=== PATIENT | male | born 1945 | race Caucasian/White ===

== ENCOUNTER 2020-06-08 08:42 | Day surgery (SDC) | payer MEDICARE, OTHER ==
[~2020-06-08] VITALS: Ht 175.3 cm; Wt 67.3 kg
[2020-06-08] VITALS (10 sets, daily range): BP systolic 92–119; BP diastolic 49–99
[2020-06-08] MEDS ORDERED: diphenhydrAMINE 25mg capsule PO PRN (09:05)
[2020-06-08] MEDS ORDERED: normal saline 1,000 ML IV SCH ×2 (09:05→12:00)
[2020-06-08] MEDS ORDERED: INSU100V9 SQ (09:19)
[2020-06-08] MEDS ORDERED: DILT30TA5 (09:19)
[2020-06-08] MEDS ORDERED: METF-436 PO (09:19)
[2020-06-08] MEDS ORDERED: DABI150C PO (09:19)
[2020-06-08] MEDS ORDERED: LYR75C PO (09:19)
[2020-06-08] MEDS ORDERED: DOCU-148 PO (09:19)
[2020-06-08] MEDS ORDERED: HYDR-4353 PO (09:19)
[2020-06-08] MEDS ORDERED: CARV3.12 PO (09:19)
[2020-06-08] MEDS ORDERED: ALBU8.5H8 INH (09:19)
[2020-06-08] MEDS ORDERED: FAMO-128 PO (09:19)
[2020-06-08 09:27] LABS: BASOPHILS # (AUTO) 0.1 X10'3 (0-0.2); BASOPHILS % (AUTO) 0.8 % (0-1); EOSINOPHILS # (AUTO) 0.2 X10'3 (0-0.9); EOSINOPHILS % (AUTO) 1.7 % (0-6); HEMATOCRIT 42.6 % (42.0-52.0); HEMOGLOBIN 14.2 g/dl (14.0-17.9); LYMPHOCYTES # (AUTO) 2.1 X10'3 (1.1-4.8); LYMPHOCYTES % (AUTO) 19.3 % (21-51); MEAN CORPUSCULAR HEMOGLOBIN 29.2 PG (27.0-31.0); MEAN CORPUSCULAR HGB CONC 33.4 g/dL (33.0-36.5); MEAN CORPUSCULAR VOLUME 87.4 FL (78-98); MEAN PLATELET VOLUME 9.5 FL (7.4-10.4); MONOCYTES # (AUTO) 1.4 X10'3 (0-0.9); MONOCYTES % (AUTO) 12.9 % (2-12); NEUTROPHILS # (AUTO) 7.1 X10'3 (1.8-7.7); NEUTROPHILS % (AUTO) 65.3 % (42-75); PLATELET COUNT 259 X10'3 (140-440); RED BLOOD COUNT 4.87 X10'6 (4.70-6.10); RED CELL DISTRIBUTION WIDTH 17.5 % (11.5-14.5); WHITE BLOOD COUNT 10.9 X10'3 (4.5-11.0)
[2020-06-08 09:35] LABS: ALBUMIN 4.1 G/DL (3.4-5.0); ANION GAP 7 (8-16); BLOOD UREA NITROGEN 14 MG/DL (7-18); BUN/CREATININE RATIO 14.9 (5.4-32.0); CALCIUM 9.5 MG/DL (8.5-10.1); CHLORIDE 102 MMOL/L (99-107); CREATININE 0.94 MG/DL (0.60-1.10); GLUCOSE 150 MG/DL (70-104); MAGNESIUM 1.7 MG/DL (1.5-2.4); POTASSIUM 3.8 MMOL/L (3.5-5.1); SODIUM 142 MMOL/L (135-145); eGFR 79 ML/MIN
[2020-06-08] MEDS ORDERED: iohexol 350MG/ML 100ml bottle IV ONE (10:16)
[2020-06-08] MEDS ORDERED: heparin 1,000unit/ml 10ml vial 10 ML ONE (10:16)
[2020-06-08] MEDS ORDERED: iohexol 350 MG/ML 50ML vial IV ONE (10:16)
[2020-06-08] MEDS ORDERED: LIDOcaine 1% (10mg/ml)w/preservative injection 20ml MDV ONE (10:16)
[2020-06-08] MEDS ORDERED: midazolam 2 mg/2 ml injection ONE (10:17)
[2020-06-08] MEDS ORDERED: fentaNYL/PF 50MCG/1 ML 2ML syringe ONE (10:18)
[2020-06-08] MEDS ORDERED: furosemide 40mg/4ml inj IV SCH (13:00)
== END 2020-06-08 16:05 | disposition home or self-care (01) ==
LOC: SSTAY O 08:42
PROVIDERS: ATTEND Internal Medicine Cardiovascular Disease
DX: I35.0 Nonrheumatic aortic (valve) stenosis (principal); R53.83 Other fatigue; R06.00 Dyspnea, unspecified; I34.1 Nonrheumatic mitral (valve) prolapse; I48.91 Unspecified atrial fibrillation; I42.9 Cardiomyopathy, unspecified; I25.2 Old myocardial infarction; I50.9 Heart failure, unspecified; Z95.5 Presence of coronary angioplasty implant and graft
CPT/HCPCS: 36415; 80048; 82948; 83735; 85025; 85610; 93005; 93460; C1760; C1769; C1894; J1644; J2001; J2250; J3010; J7030; Q0163; Q9967; 99152; 99153; A4620; A6258; C1751

== ENCOUNTER 2020-06-25 05:34 | Day surgery (SDC) | payer MEDICARE, OTHER ==
[2020-06-25] VITALS (22 sets, daily range): BP systolic 73–137; BP diastolic 32–69
[~2020-06-25] VITALS: Ht 175.3 cm; Wt 67.3 kg
[~2020-06-25 05:34] MED LIST: ALBU8.5H8 INH; CARV3.12 PO; DABI150C PO; DILT30TA5; DOCU-148 PO; FAMO-128 PO; HYDR-4353 PO; INSU100V9 SQ; LYR75C PO; METF-436 PO
[2020-06-25] MEDS ORDERED: [UNRECOGNIZED DRUG - REMARK] IV ONE (06:10)
[2020-06-25] MEDS ORDERED: METF-436 PO (07:51)
[2020-06-25] MEDS ORDERED: INSU100V12 SQ (07:51)
[2020-06-25] MEDS ORDERED: FURO20TA4 PO (07:54)
[2020-06-25] MEDS ORDERED: LYR75C PO (07:55)
[2020-06-25] MEDS ORDERED: CARV25TA2 PO (07:56)
[2020-06-25] MEDS ORDERED: ZET10T PO (07:58)
[2020-06-25] MEDS ORDERED: BENZ-38 PO (07:59)
[2020-06-25] MEDS ORDERED: ATOR-2 PO (08:01)
[2020-06-25] MEDS ORDERED: ASPI81TA30 PO (08:02)
[2020-06-25] MEDS ORDERED: CYAN-34 PO (08:03)
[2020-06-25] MEDS ORDERED: FERR325T28 PO (08:06)
[2020-06-25] MEDS ORDERED: CHOL100024 PO (08:07)
--- NOTE | 2020-06-25 08:10 | NUR ---
Astrid padilla in to start echo study.
[2020-06-25] MEDS ORDERED: iohexol 350 MG/ML 50ML vial IV ONE (10:26)
[2020-06-25] MEDS ORDERED: iohexol 350MG/ML 100ml bottle IV ONE (10:26)
== END 2020-06-25 12:05 | disposition home or self-care (01) ==
LOC: SSTAY O 05:34
PROVIDERS: ATTEND Internal Medicine Cardiovascular Disease
DX: I35.0 Nonrheumatic aortic (valve) stenosis (principal); R06.02 Shortness of breath; I65.23 Occlusion and stenosis of bilateral carotid arteries; I70.0 Atherosclerosis of aorta; I25.10 Atherosclerotic heart disease of native coronary artery without angina pectoris; J90 Pleural effusion, not elsewhere classified; J47.9 Bronchiectasis, uncomplicated; J94.8 Other specified pleural conditions; Z79.82 Long term (current) use of aspirin; Z79.899 Other long term (current) drug therapy
CPT/HCPCS: 71275; 74174; 82948; 93350; 93880; J1250; Q9967

== ENCOUNTER 2020-07-02 13:42 | Outpatient (CLI) | payer MEDICARE, OTHER ==
[~2020-07-02 13:42] MED LIST changes: -ALBU8.5H8 INH; +ASPI81TA30 PO; +ATOR-2 PO; +BENZ-38 PO; +CARV25TA2 PO; -CARV3.12 PO; +CHOL100024 PO; +CYAN-34 PO; -DILT30TA5; -DOCU-148 PO; -FAMO-128 PO; +FERR325T28 PO; +FURO20TA4 PO; +INSU100V12 SQ; -INSU100V9 SQ; +ZET10T PO
[2020-07-02 18:12] VITALS: BP 103/55
[2020-07-27] MEDS ORDERED: NITR0.4T51 SL (13:17)
[2020-08-15] MEDS ORDERED: POTA10TA36 PO (11:35)
[2020-08-15] MEDS ORDERED: FURO-150 PO (11:35)
[2020-08-17] MEDS ORDERED: LISI2.5T2 PO (10:43)
[2020-08-17] MEDS ORDERED: FURO40TA4 PO (10:43)
== END 2020-07-02 23:59 | disposition home or self-care (01) ==
LOC: RT 13:42
PROVIDERS: ATTEND Internal Medicine Cardiovascular Disease
DX: Z53.9 Procedure and treatment not carried out, unspecified reason (principal); I35.0 Nonrheumatic aortic (valve) stenosis; R06.02 Shortness of breath; I65.29 Occlusion and stenosis of unspecified carotid artery

== ENCOUNTER 2020-07-08 13:45 | Outpatient (CLI) | payer MEDICARE, OTHER ==
[~2020-07-08] VITALS: Ht 175.3 cm; Wt 69.9 kg
[2020-07-08 14:45] LABS: ABG BASE EXCESS 0.5 mmol/L (-2.0-2.0); ABG HCO3 24.9 mmol/L (22.0-26.0); ABG OXYGEN SATURATION 96.9 % (94-97); ABG PCO2 (T) 39.2 mmHg (35.0-48.0); ABG PO2 (T) 88.1 mmHg (75.0-100.0); ALLEN'S TEST POSITIVE; FCOHb 0.9 % (0.0-3.9); FMetHb 0.2 % (0.0-1.5); FO2Hb 95.8 % (94-97); TOTAL HEMOGLOBIN 13.8 G/dl (14.0-18.0)
[2020-07-08] MEDS ORDERED: albuterol 2.5 MG/3 ML nebule NEB ONE (14:45)
[2020-07-27] MEDS ORDERED: NITR0.4T51 SL (13:17)
== END 2020-07-08 23:59 | disposition home or self-care (01) ==
LOC: RT 13:45
PROVIDERS: ATTEND Internal Medicine Cardiovascular Disease
DX: R94.2 Abnormal results of pulmonary function studies (principal); I35.0 Nonrheumatic aortic (valve) stenosis; R06.02 Shortness of breath; I65.29 Occlusion and stenosis of unspecified carotid artery
CPT/HCPCS: 36600; 82803; 85018; 94060; 94727; 94729; 94760

== ENCOUNTER 2020-07-17 12:29 | Emergency (ER) | payer MEDICARE, OTHER ==
[~2020-07-17] VITALS: Ht 175.3 cm; Wt 65.8 kg
[2020-07-17 13:22] LABS: BASOPHILS # (AUTO) 0.1 X10'3 (0-0.2); BASOPHILS % (AUTO) 0.6 % (0-1); EOSINOPHILS # (AUTO) 0.1 X10'3 (0-0.9); EOSINOPHILS % (AUTO) 0.6 % (0-6); HEMATOCRIT 39.3 % (42.0-52.0); HEMOGLOBIN 13.3 g/dl (14.0-17.9); LYMPHOCYTES # (AUTO) 2.1 X10'3 (1.1-4.8); LYMPHOCYTES % (AUTO) 13.5 % (21-51); MEAN CORPUSCULAR HEMOGLOBIN 29.7 PG (27.0-31.0); MEAN CORPUSCULAR HGB CONC 33.8 g/dL (33.0-36.5); MEAN CORPUSCULAR VOLUME 88.1 FL (78-98); MEAN PLATELET VOLUME 9.8 FL (7.4-10.4); MONOCYTES # (AUTO) 1.5 X10'3 (0-0.9); MONOCYTES % (AUTO) 9.3 % (2-12); NEUTROPHILS # (AUTO) 12.1 X10'3 (1.8-7.7); PLATELET COUNT 226 X10'3 (140-440); RED BLOOD COUNT 4.46 X10'6 (4.70-6.10); RED CELL DISTRIBUTION WIDTH 17.4 % (11.5-14.5); WHITE BLOOD COUNT 15.9 X10'3 (4.5-11.0)
[2020-07-17 13:38] LABS: ALANINE AMINOTRANSFERASE 25 U/L (12-78); ALBUMIN 3.8 G/DL (3.4-5.0); ALBUMIN/GLOBULIN RATIO 1.4 (1.1-1.5); ALKALINE PHOSPHATASE 76 IU/L (46-116); ANION GAP 9 (8-16); ASPARTATE AMINO TRANSFERASE 14 U/L (10-37); BILIRUBIN,TOTAL 0.8 MG/DL (0.1-1.0); BLOOD UREA NITROGEN 16 MG/DL (7-18); BUN/CREATININE RATIO 18.6 (5.4-32.0); CALCIUM 9.3 MG/DL (8.5-10.1); CHLORIDE 108 MMOL/L (99-107); CREATININE 0.86 MG/DL (0.60-1.10); GLUCOSE 148 MG/DL (70-104); POTASSIUM 4.2 MMOL/L (3.5-5.1); SODIUM 143 MMOL/L (135-145); TOTAL CARBON DIOXIDE 25.9 MMOL/L (24-32); TOTAL PROTEIN 6.6 G/DL (6.4-8.2); eGFR 87 ML/MIN
[2020-07-17 13:46] LABS: D-DIMER < 0.19 MG/L FEU (0-0.50)
[2020-07-17 14:41] VITALS: BP 108/64
[2020-07-27] MEDS ORDERED: NITR0.4T51 SL (13:17)
== END 2020-07-17 14:40 | disposition home or self-care (01) ==
LOC: ER 12:29
DX: R06.02 Shortness of breath (principal); R50.9 Fever, unspecified; F41.9 Anxiety disorder, unspecified; Z20.828 Contact with and (suspected) exposure to other viral communicable diseases; I25.10 Atherosclerotic heart disease of native coronary artery without angina pectoris; Z98.890 Other specified postprocedural states; Z79.82 Long term (current) use of aspirin; Z79.899 Other long term (current) drug therapy; Z79.4 Long term (current) use of insulin
CPT/HCPCS: 36415; 71045; 80053; 83880; 84145; 84484; 85025; 85379; 87635; 93005; 99285

== ENCOUNTER 2020-09-11 13:20 | Day surgery (SDC) | payer MEDICARE, OTHER ==
[~2020-09-11] VITALS: Ht 175.3 cm; Wt 71.4 kg
[~2020-09-11 13:20] MED LIST changes: -FURO20TA4 PO; +FURO40TA4 PO; +LISI2.5T2 PO; +NITR0.4T51 SL; +POTA10TA36 PO
[2020-09-11] MEDS ORDERED: ALBU2.5V12 NEB (13:39)
[2020-09-11] MEDS ORDERED: DOCU100C40 PO (13:41)
[2020-09-11] MEDS ORDERED: FURO-150 PO (13:43)
[2020-09-11] MEDS ORDERED: LISI2.5T2 PO (13:43)
[2020-09-11] MEDS ORDERED: BUDE10.2 INH (13:43)
[2020-09-11 13:45] VITALS: BP_SYST 102; BP_SYST 97; BP_DIAS 53; BP_DIAS 60
[2020-09-11] MEDS ORDERED: albumin 25% 100mL bottle x 1 IV PRN (13:45)
[2020-09-11 14:00] VITALS: BP 94/55
[2020-09-11 14:15] VITALS: BP 108/54
[2020-09-11 14:30] VITALS: BP 110/54
== END 2020-09-11 14:40 | disposition home or self-care (01) ==
LOC: SSTAY O 13:20
PROVIDERS: ATTEND Radiology Vascular & Interventional Radiology
DX: J90 Pleural effusion, not elsewhere classified (principal); I50.9 Heart failure, unspecified; E11.42 Type 2 diabetes mellitus with diabetic polyneuropathy; J44.1 Chronic obstructive pulmonary disease with (acute) exacerbation; Z79.899 Other long term (current) drug therapy; Z79.4 Long term (current) use of insulin; Z95.5 Presence of coronary angioplasty implant and graft; Z85.118 Personal history of other malignant neoplasm of bronchus and lung; Z87.01 Personal history of pneumonia (recurrent); Z95.2 Presence of prosthetic heart valve
CPT/HCPCS: 32555; 36415; 71045